=== PATIENT | female | born 1960 | race Caucasian/White ===

== ENCOUNTER → 2016-12-02 | Outpatient (CLI) | payer BC ==
[~2016-12-02] MED LIST: ASPIRIN E.C. 8181 MG PO; FLONASEALLERGY NS; MULTAQ400 MG PO; PRADAXA 150MG150 MG PO; TOPROL XL 50MG50 MG PO; TYLENOL 500MG500 MG PO
== END ==
LOC: MC.RAD 14:40
DX: D24.2 Benign neoplasm of left breast (principal); D24.1 Benign neoplasm of right breast

== ENCOUNTER → 2018-01-17 | Outpatient (CLI) | payer BC | LOC: MC.RAD 15:17 | DX: Z12.31 Encounter for screening mammogram for malignant neoplasm of breast (principal) ==

== ENCOUNTER → 2019-07-17 | Outpatient (CLI) | payer BC | LOC: MC.RAD 10:00 | DX: Z12.31 Encounter for screening mammogram for malignant neoplasm of breast (principal) ==

== ENCOUNTER → 2020-11-21 | Outpatient (CLI) | payer BC | LOC: MC.RAD 11:11 | DX: Z12.31 Encounter for screening mammogram for malignant neoplasm of breast (principal) ==

== ENCOUNTER 2022-06-05 00:58 | Observation (INO) | payer BC ==
[~2022-06-05] VITALS: Ht 175.3 cm; Wt 113.0 kg
[2022-06-05 01:39] LABS: BASO % 0.7 % (0.0-2.0); EOS # 0.2 K/mm3 (0.0-0.7); EOS % 5.1 % (0.0-4.0); GRAN % 44.4 % (42.2-75.2); HEMATOCRIT 38.3 % (37.0-47.0); HEMOGLOBIN 12.4 g/dl (12.5-16.0); LYMPH # 1.5 K/mm3 (1.2-3.4); LYMPH % 33.5 % (20.0-51.0); MEAN CELL VOLUME 86 fl (80.0-100.0); MEAN CORPUSCULAR HEMOGLOBIN 28 pg (27-31); MEAN CORPUSCULAR HGB CONC 32 g/dl (33.0-37.0); MEAN PLATELET VOLUME 8.6 fl (7.4-10.4); MONO # 0.7 K/mm3 (0.1-0.6); MONO % 16.1 % (1.7-9.3); PLATELET COUNT 204 K/mm3 (130-400); RED BLOOD COUNT 4.47 M/mm3 (4.10-5.30); REDCELL DISTRIBUTION WIDTH-CV 12.9 % (11.5-14.5)
[2022-06-05 01:49] LABS: INR 0.9 (0.8-3.0); PROTHROMBIN TIME 10.7 SECONDS (9.7-12.8)
[2022-06-05 01:51] LABS: PARTIAL THROMBOPLASTIN TIME 27.9 SECONDS (26.0-37.0)
[2022-06-05 02:00] LABS: ALANINE AMINOTRANSFERASE 16 U/L (0-55); ALBUMIN 3.7 gm/dL (3.4-4.8); ALKALINE PHOSPHATASE 79 U/L (40-150); ANION GAP 12 mmol/L (7-16); AST,SGOT 16 U/L (5-34); BILIRUBIN,TOTAL 0.2 mg/dL (0.2-1.2); BLOOD UREA NITROGEN 18 mg/dL (10-20); CALCIUM 9.1 mg/dL (8.4-10.2); CARBON DIOXIDE 22 mmol/L (23-31); CHLORIDE 108 mmol/L (98-107); CREATININE, serum 0.84 mg/dL (0.57-1.11); GLUCOSE 131 mg/dL (70-99); POTASSIUM 3.7 mmol/L (3.5-4.5); SODIUM 142 mmol/L (136-145); TOTAL PROTEIN 6.7 gm/dL (6.2-8.1)
[2022-06-05 02:11] LABS: TROPONIN-I < 0.010 ng/mL (0.00-0.033)
[2022-06-05] MEDS ORDERED: LIPITOR 10MG10 MG PO (04:47)
[2022-06-05 05:48] VITALS: BP 100/51; PULSE 48; TEMP 97.5
--- NOTE | 2022-06-05 06:00 | NUR ---
ARRIVES TO ROOM VIA W/C FROM ED. HAS HEPARIN GTT INFUSING TO RT HAND WITHOUT REDNESS OR SWELLING. HAS INT TO LAC. IS ALERT AND ORIENTED X4.
[2022-06-05 07:40] VITALS: BP 103/71; PULSE 51; TEMP 97.7
[2022-06-05 08:16] LABS: HEMATOCRIT 37.8 % (37.0-47.0); HEMOGLOBIN 12.1 g/dl (12.5-16.0); MEAN CELL VOLUME 87 fl (80.0-100.0); MEAN CORPUSCULAR HEMOGLOBIN 28 pg (27-31); MEAN CORPUSCULAR HGB CONC 32 g/dl (33.0-37.0); MEAN PLATELET VOLUME 8.9 fl (7.4-10.4); PLATELET COUNT 166 K/mm3 (130-400); RED BLOOD COUNT 4.34 M/mm3 (4.10-5.30); REDCELL DISTRIBUTION WIDTH-CV 12.8 % (11.5-14.5)
--- NOTE | 2022-06-05 08:51 | NUR ---
HOLDING HEPARIN FOR 2 HRS AND REDRAW LABS AT 1100.
--- NOTE | 2022-06-05 10:23 | NUR ---
PT RESTING IN BED EKG COMPLETE. POSSIBLE DISCHARGE LATER TODAY AFTER DR. WYNN SEES PT. PT CURRENTLY RESTING IN BED. HEPARIN HELD AT THIS TIME PER PROTOCOLS.
[2022-06-05 11:32] LABS: PARTIAL THROMBOPLASTIN TIME 53.9 SECONDS (26.0-37.0)
[2022-06-05 12:02] VITALS: BP 113/60; PULSE 48; TEMP 98.3
[2022-06-05] MEDS ORDERED: TOPROL XL 25MG25 MG PO (12:27)
[2022-06-05] MEDS ORDERED: TAMBOCOR 1100 MG/TAB PO (12:29)
--- NOTE | 2022-06-05 13:58 | NUR ---
DISCHARGE INSTSRUCTIONS REVIEWED WITH PT. QUESTIONS SOLICITED AND ANSWERED. PT LEFT UNIT AMBULATORY WITH STAFF. INT X2 DISCONTINUED TIP INTACT PT TOLERATED WELL.
--- NOTE | 2022-06-05 14:58 | NUR ---
Wire Coiler met with patient for intake assessment/discharge planning: Patient is sitting up in her bed, alert and oriented and willing to speak to this Wire Coiler. She states she lives in a 1 story home with her spouse José Luis . She utilizes no DME including oxygen, and she is independent in her ADLs and IADLs. She states she sees Dr. Kiran for primary care and she obtains her prescriptions at [facility] or online with no difficulties. She informs she has a DPOA-HC at home, appointing her spouse José Luis as her DPOA-HC. Patient reports no needs/concerns for returning to home at this time and she is planning to discharge today. *Discharge plan: to home with spouse*
== END 2022-06-05 13:59 | disposition home or self-care (01) ==
LOC: COL.ER 00:58 → SURG 02:30
PROVIDERS: Emergency Medicine; ADMIT Internal Medicine
DX: I48.0 Paroxysmal atrial fibrillation (principal); E78.5 Hyperlipidemia, unspecified; I25.10 Atherosclerotic heart disease of native coronary artery without angina pectoris; Z79.899 Other long term (current) drug therapy; Z79.82 Long term (current) use of aspirin
CPT/HCPCS: G0378; J1644

== ENCOUNTER → 2023-11-10 | Outpatient (CLI) | payer BC ==
[~2023-11-10] MED LIST changes: +LIPITOR 10MG10 MG PO; +TAMBOCOR 1100 MG/TAB PO; +TOPROL XL 25MG25 MG PO
== END ==
LOC: MC.RAD 09:57
DX: Z12.31 Encounter for screening mammogram for malignant neoplasm of breast (principal)

== ENCOUNTER 2024-02-03 17:17 | Emergency (ER) | payer BC ==
[~2024-02-03] VITALS: Ht 175.3 cm; Wt 103.2 kg
[~2024-02-03 17:17] MED LIST changes: -LIPITOR 10MG10 MG PO; +LIPITOR 40MG TA40 MG PO
[2024-02-03] MEDS ORDERED: Rabies Immune Globulin PF 300 UNITS/2 ML VIAL IM ONE (18:15)
[2024-02-03 19:11] VITALS: BP 118/66; PULSE 50; TEMP 98.7
[2024-02-06] MEDS ORDERED: AMOXICILLIN 8751 TAB PO (09:23)
[2024-02-06] MEDS ORDERED: LEXAPRO 10MG10 MG PO (09:23)
== END 2024-02-03 19:11 | disposition home or self-care (01) ==
LOC: COL.ER 17:17
DX: S71.151A Open bite, right thigh, initial encounter (principal); Z23 Encounter for immunization; W54.0XXA Bitten by dog, initial encounter